=== PATIENT | male | born 1960 | race Caucasian/White ===

== ENCOUNTER 2025-04-22 14:28 | Emergency (ER) | payer BC, SELFPAY ==
--- OUTSIDE RECORDS SUMMARY | 2025-04-22 14:32 | XMS_ITS | Clinical Summary ---
Author Organization [facility] Address [address] [place] [address] Care Team Providers Care Guest Services Lead Name Role Phone Karely Bowden MD Primary Care Provider [phone] Allergies No known active allergies Medications MedicationSigDispense QuantityRefillsLast FilledStart DateEnd DateStatus diclofenac (VOLTAREN) 75 mg delayed-release tablet Indications:Chronic pain of both shouldersTake 1 Tablet (75 mg) by mouth once daily. 90 Tablet 4Active Additional Information Patient not taking.Reason: holding off for now, will resume if needed, Reported on 04/10/2024 fluticasone (50 mcg per actuation) nasal solution (FLONASE) Indications:Acute non-recurrent maxillary sinusitisInhale 2 Sprays in both nostrils once daily. 16 g 4Active omeprazole (PRILOSEC) 20 mg Delayed-Release capsule Indications:Gastritis without bleeding, unspecified chronicity, unspecified gastritis typeTAKE 1 CAPSULE (20 MG) BY MOUTH ONCE DAILY BEFORE A MEAL. 90 Capsule 5Active famotidine (PEPCID) 20 mg tablet Indications:Gastritis without bleeding, unspecified chronicity, unspecified gastritis typeTAKE 1 TABLET (20 MG) BY MOUTH AT BEDTIME 90 Tablet 5Active levothyroxine (SYNTHROID) 75 mcg tablet Indications:Subclinical hypothyroidismTAKE 1 TABLET (75 MCG) BY MOUTH ONCE DAILY. 90 Tablet 5Active levothyroxine (SYNTHROID) 75 mcg tablet Indications:Subclinical hypothyroidismTake 1 Tablet (75 mcg) by mouth once daily. 90 Tablet /4105/27/2024Discontinued Active Problems ProblemNoted DateDiagnosed DateSubclinical pxbxualbbkrdjz27/06/2022Right leg pain05/07/2021alculus of gallbladder without cholecystitis without obstruction 07/02/2020Gastritis without vtpnzjuj36/03/2021Family history of thyroid disease 07/02/2020sophageal reflux Resolved Problems ProblemNoted DateDiagnosed DateResolved DatePain in joint, ankle and foot Encounters DateTypeDepartmentCare OshwQesovawgcjd27/22/2025Nurse Triage [address] [address] Karely Bowden MD Leg Pain/problem (Recent international travel)04/22/2025Telephone [facility] [address] [place] [address] Karely Bowden MD Leg Pain/baypqvp0303/26/2025Refill [facility] [address] [place] [address] Karely Bowden MD Refill Request (Levothyroxine)03/07/2025Refill [facility] [address] [place] [address] Karely Bowden MD Refill Request (Famotidine)02/06/2025Refill [facility] [address] [place] [address] Karely Bowden MD Refill Request (Omeprazole)from Last 3 Months Immunizations ImmunizationAdministration DatesNext DueAMB Influenza, IIV4 PF (=>6 mos Flulaval,Fluzone Fluarix)(Flu Clinic Only)03/05/2017Influenza, IIV3 (Age >=3 years)01/26/2011Influenza, XXX76005/08/2013,02/05/2013Influenza, IIV4 (=>6mos) MDV 01/14/2020,02/26/2019,02/08/2018,02/09/2016Influenza, Injectable, Mdck, Quadrivalent, W/hdfeqptthgau75/31/2022,01/22/2021Td (Age >=7 Years)02/11/2004 Tdap05/07/2021,07/03/2012Zoster (Shingrix-RZV, recombinant)11/03/2021,05/07/2021 Family History Medical HistoryRelationNameCommentsGood HealthFatherOtherFatherhypothyroidOther MotherparkinsonsRelationNameStatusCommentsFatherAliveMotherDeceased Social History Tobacco UseTypesPacks/DayYears UsedDateSmoking Tobacco: NeverPassive Smoke Exposure: NeverSmokeless Tobacco: Never Tobacco Cessation:Counseling Given: Yes Alcohol UseStandard Drinks/WeekCommentsYes7 (1 standard drink = 0.6 oz pure alcohol)one two beers a dayPHQ-2AnswerDate RecordedPHQ-2 TOTAL GTCJT248 Social ConnectionsAnswerDate RecordedDo you often feel lonely or isolated from those around you?Financial Resource StrainAnswerDate Recorded Difficulty of Paying Living Adfzdkfb292/03/2024Difficulty of Paying Living ExpensesNot on file02/02/2024Food InsecurityAnswerDate RecordedDo you worry your food will run out before you are able to buy more?Transportation NeedsAnswerDate RecordedDoes lack of transportation keep you from medical appointments?oes lack of transportation keep you from work, meetings or getting things that you need?Housing StabilityAnswerDate Recorded What is your housing situation today?UtilitiesAnswerDate RecordedDo you have trouble paying for utilities (for example, heat, electricity, water, phone)?Sex and Gender InformationValueDate RecordedSex Assigned at QvmlcAkgu36/03/2022 7:36 AM CSTLegal FkjWsqa4505/15/2012 5:46 AM CSTGender PxfjfaaxDnkr42/03/2022 7:36 AM CSTSexual OrientationNot on fileOccupation IndustryJob Start DateJob End Dategeology professorNot on fileNot on fileNot on file Last Filed Vital Signs Vital SignReadingTime TakenCommentsBlood Amodapou959/8210 10:54 AM CDT Tqgak307302/07/2024 10:54 AM NJKEdxlpoclveu43.6 ??C (97.8 ??F)10/03/2019 8:17 AM CDTRespiratory Ztso559607/08/2017 5:48 PM CSTOxygen Szsbmqacrg62%02/07/2024 10:54 AM CDTInhaled Oxygen Concentration--Ekbbdw33.5 kg (190 lb 12.8 oz)02/07/2024 10:54 AM KMLBsitck092.3 cm (5' 11)12/10/2022 8:23 AM CDTBody Mass Index26.61 12/10/2022 8:23 AM CDT Plan of Treatment DateTypeDepartmentCare Team (Latest Contact Info)Jltprghrbkt61/08/2026 8:45 AM CSTOffice Visit [facility] [address] [place] [address] Karely Bowden MD [address] [place] [address] Health MaintenanceDue DateLast DoneCommentsPneumococcal series for age 50+ (1 of 1 - PCV)2012MI (ht and wt on same day) for age 18+, 10/03/2019, 09/20/2018, Additional history existsDepression screening for age 12+, 05/07/2021, 09/14/2019, Additional history exists Colonoscopy through age 7508///COVID-19 vaccine series (2024- season), 02/17/2023, 01/21/2022, Additional history existsInfluenza Vaccine (#1), 01/22/2021, 01/14/2020, Additional history existsLipids for age 45-75, 12/10/2022, 05/07/2021, Additional history existsTetanus qqebqcb65, 07/03/2012, 07/03/2012, Additional history existsRSV vaccine for adults or (1 - 1-dose 75+ series)2037Hepatitis C screening for age 18-79 Dkjggrxls67/06/2022Zoster (shingles) series for age 50+Iyrjjtowo62/05/2022, 05/07/2021HIV for age 15-58Dicsjscie42/11/2023Hepatitis B series for 19+Aged Out No longer eligible based on patient's age to complete this topic Procedures Procedure NamePriorityDate/TimeAssociated DiagnosisCommentsLIPID PANEL W REFLEX MEASURED OBVGaixlwd08/08/2024 11:14 AM CDT Lipid screening LC HIV-1/O/2, 4TH PYIBMOIUUGNwpmiex39/11/2023 9:19 AM CDT Screening for HIV (human immunodeficiency virus) ANTI XBBSoyujsp09/06/2022 9:03 AM 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 Lita et al. J. of Clin. Lipidol. 2015;9:129-169. LDL-DQFLOHEFZMA694(H)mg/dL (calc)Quest farmfloeComment: Reference range: <100 Desirable range <100 mg/dL for primary prevention; <70 mg/dL for patients with CHD or diabetic patients with > or = 2 CHD risk factors. LDL-C is now calculated using the Francisco J-Montelongo calculation, which is a validated novel method providing better accuracy than the Friedewald equation in the estimation of LDL-C. Francisco J SS et al. BALJINDER. 2013;310(19): 6945-7427 (http://education.Halldis/faq/RAE180) CHOL/HDLC RATIO4.8<5.0 (calc)Cro YachtingSt. Cloud Va Health Care SystemeNOTamy HDL QMWPFPYJIMN499 (H)<130 mg/dL (calc)Overture ServicesSandstone Critical Access HospitaleComment: For patients with diabetes plus 1 major ASCVD risk factor, treating to a non-HDL-C goal of <100 mg/dL (LDL-C of <70 mg/dL) is considered a therapeutic option. Specimen (Source)Anatomical Location / LateralityCollection Method / Volume Collection TimeReceived TimeBloodBLOOD SPECIMEN / Pobdoqu5602/07/2024 11:14 AM CDT 02/07/2024 11:15 AM CDT Narrative Authorizing ProviderResult TypeResult StatusMelissa Dionicio Bowden MDCHEMISTRYFinal ResultPerforming OrganizationAddressCity/State/ZIP CodePhone Number [facility] [address] [place] [address], [facility] YachtingRidgeview [facility] [address] [place] [address] * LC HIV-1/O/2, 4TH GENERATION (12/10/2022 9:19 AM CDT)ComponentValueRef Range Test MethodAnalysis TimePerformed AtPathologist SignatureHIV Scr 4th GenNon ReactiveNon Yidmdnej06/15/2023 10:10 AM CDTLABCORP [facility] (CET)Comment: HIV Negative HIV-1/HIV-2 antibodies and HIV-1 p24 antigen were NOT detected. There is no laboratory evidence of HIV infection. Specimen (Source)Anatomical Location / LateralityCollection Method / Volume Collection TimeReceived TimeBloodBLOOD SPECIMEN / UnknownVenipuncture / Unknown 12/10/2022 9:19 AM CDT12/10/2022 9:19 AM CDT [facility] (CET) - 12/14/2022 10:10 AM CDT Performed at: 01 - [place] [id number] [place], [place] [id number] Building Construction Teacher: Zia Lucas MD, Phone: ??[phone] Authorizing ProviderResult TypeResult StatusKarely Bowden MDLABORATORYFinal ResultPerforming OrganizationAddressCity/State/ZIP CodePhone Number [facility] (CET) [address] [place] [address], * ANTI HCV (05/07/2021 9:03 AM GASOLINE ENGINE INSPECTOR)ComponentValueRef RangeTest MethodAnalysis TimePerformed AtPathologist SignatureHEPATITIS C ANTIBODYNon-Reactive Non-Uileyxwn58/06/2022 3:23 PM CSTALLDAYTON GENERAL [facility] Comment:Antibodies to HCV not detected; does not exclude the possibility of exposure to HCV.Specimen (Source)Anatomical Location / LateralityCollection Method / VolumeCollection TimeReceived TimeBloodBLOOD SPECIMEN / Unknown Venipuncture / Kjpwbqh1305/07/2021 9:03 AM CST05/07/2021 9:06 AM GASOLINE ENGINE INSPECTOR Narrative Authorizing ProviderResult TypeResult StatusKarely Bowden MDSEND OUTSFinal ResultPerforming OrganizationAddressCity/State/ZIP CodePhone Number [facility] [address] [place] [address], from Last 3 Months or Most Recently Relevant to Health Maintenance Insurance * Guarantor: Dennys Dorman TypeRelation to PatientDate of PhoneBilling AddressPersonal/MdwenxQnya04/19/1961 [address] [place] [place] [address] [place] [place] [address] Care Teams Team MemberRelationshipSpecialtyStart DateEnd Date [place]are[place] [address] PCP - GeneralFamily Practice07/02/20
[2025-04-22 14:47] VITALS: BP 179/85; PULSE 82; RESP 16; TEMP 36.4; O2SAT 98; BMI 26.8
--- NOTE | 2025-04-22 14:50 | CRLHL7_ITS ---
For Patients: As a result of the Century Cures Act, medical imaging exams and procedure reports are released immediately into your electronic medical record. You may view this report before your referring provider. If you have questions, please contact your health care provider. INDICATION: Leg pain and swelling. TECHNIQUE: Ultrasound venous duplex lower left extremity. Compression venous exam was performed using de jesus-scale, color Doppler, and spectral Doppler analysis. COMPARISON: None. FINDINGS: Deep veins: There is thrombus present in 1 of the paired left posterior tibial veins. Remainder of the deep veins are patent. Superficial veins: Greater saphenous vein is fully compressible. No popliteal cyst. IMPRESSION: A deep venous thrombus is present in a left posterior tibial vein below the knee. Remainder of the exam is unremarkable. Dictated by Adrian Rivera MD @ 04/22/2025 4:03:59 PM (Electronically Signed)
--- NOTE | 2025-04-22 16:15 | ED_ITS ---
HPI - General Adult General Date Seen: 04/22/25 Chief complaint: Extremity Pain/Injury, Lower Stated complaint: LT calf pain 2 weeks Time Seen by Provider: 04/22/25 16:15 Source: patient and RN notes reviewed Mode of arrival: ambulatory Limitations: no limitations History of Present Illness HPI narrative: This 64-year-old male is coming in to the ER with concern of a blood clot. He had a 14 hour plane flight about 2 weeks ago. He came back from [facility]. They had a stop in [place] and than from [place] back to [place]. He has not really noticed any swelling or redness but he has a point in his left medial calf where it is aching. It did wake him up last night. He has continued to have pain for 2 weeks. He has no fevers or chills, no shortness of breath, no chest pain. The pain just has not relented. He has a colleague that had a history of a DVT in ended up with a near fatal pulmonary embolus. 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 He has never had a blood clot before. Related Data Home Medications ?Medication ?Instructions ?Recorded ?Confirmed famotidine 20 mg tablet 20 mg PO QPM 04/22/25 levothyroxine 75 mcg tablet 75 mcg PO DAILY 04/22/25 1 06/23/24 omeprazole 20 mg capsule,delayed 20 mg PO DAILY 04/22/25 release Allergies Allergy/AdvReac Type Severity Reaction Status Date / Time No Known Drug Allergies Allergy Verified 04/22/25 14:46 Review of Systems Narrative: As per HPI. Exam Const: Vital Signs, click to edit/add: Vital Signs - 24 hr 04/22/25 14:47 Temperature 97.5 F L Pulse Rate [Pulse Oximeter] 82 Respiratory Rate 16 Blood Pressure [Ri ght Upper Arm] 179/85 H Pulse Oximetry 98 Oxygen Delivery Me thod Room Air This 64-year-old male is ambulatory come gait normal. He is seen in triage due to the volume in the acuity the ER. He is alert, interactive, no apparent distress. Lungs are clear, good air entry, no wheeze or crackles, no tachypnea, no accessory muscle use. CV regular rate and rhythm, no murmur, normal S1-S2. He has no edema of this left lower extremity. He has discomfort along the left medial calf, along the gastrocnemius muscle but there really is no palpable cord, no swelling. Neurovascular is intact. Documenting provider has reviewed patient's vital signs: yes Course Course ED Course: Did review his ultrasound result. He has an isolated DVT in 1 of the left tibial veins and is below the knee. We reviewed open evidence with the 2 potential ways to do this. Treatment for DVT for 3 months verses period of observation with serial ultrasounds at 1 and 2 weeks with initiation of anticoagulant if there is any propagation. Patient and I discussed risks benefits, risks of bleeding with blood thinners. We did review NOACs. Ultimately we agreed upon treatment with Eliquis. Will give him his 1st dose of 10 mg Eliquis here. Vital Signs Vital signs: Initial Vital Signs Temperature 97.5 F L 04/22/25 14:47 Temperature Source Temporal Artery Scan 04/22/25 14:47 Pulse Rate 82 04/22/25 14:47 Respiratory Rate 16 04/22/25 14:47 Blood Pressure 179/85 H 04/22/25 14:47 Blood Pressure Mean 116 H 04/22/25 14:47 Pulse Oximetry 98 04/22/25 14:47 Oxygen Delivery Method Room Air 04/22/25 14:47 Vital Signs Temperature 97.5 F L 04/22/25 14:47 Pulse Rate 82 04/22/25 14:47 Respiratory Rate 16 04/22/25 14:47 Blood Pressure 179/85 H 04/22/25 14:47 Pulse Oximetry 98 04/22/25 14:47 Oxygen Delivery Method Room Air 04/22/25 14:47 Temperature 97.5 F L 04/22/25 14:47 Pulse Rate 82 04/22/25 14:47 Respiratory Rate 16 04/22/25 14:47 Blood Pressure 179/85 H 04/22/25 14:47 Pulse Oximetry 98 04/22/25 14:47 Oxygen Delivery Method Room Air 04/22/25 14:47 Medical Decision Making Medical Records Medical records reviewed: Yes I reviewed the patient's medical records Medical records narrative: Review of prior chemistries from his clinic show no evidence any renal dysfunction historically. Imaging Data Venous US: Attestation: I have reviewed the pertinent imaging results. Radiologist's impression: Patient: YVONNE PERLA Facility:?[facility] Patient ID:?[id number] Site Patient ID:?[id number]. Site :?1960 Study:?US-Extremity Left LEV-04/22/2025 3:50:14 PM Ordering Physician:?PROVIDER IRINA Final Report: INDICATION: Leg pain and swelling. TECHNIQUE: Ultrasound venous duplex lower left extremity. Compression venous exam was performed using de jesus-scale, color Doppler, and spectral Doppler analysis. COMPARISON: None. FINDINGS: Deep veins: There is thrombus present in 1 of the paired left posterior tibial veins. Remainder of the deep veins are patent. Superficial veins: Greater saphenous vein is fully compressible. No popliteal cyst. IMPRESSION: A deep venous thrombus is present in a left posterior tibial vein below the knee. Remainder of the exam is unremarkable. Dictated by Adrian Rivera MD @ 04/22/2025 4:03:59 PM (Electronic Signature) Discharge Plan Discharge Clinical Impression: Acute DVT of left tibial vein Patient Disposition: Home, Self-Care Condition: Stable Instructions: Deep Vein Thrombosis (ED) Additional Instructions: Take Eliquis as prescribed. You will take 10mg twice daily for a total of 13 more doses (had your first dose in the ED). After that, you will take 5 mg twice a day to complete 3 months of treatment. Please schedule follow-up with your primary care provider within the next few weeks, she can get further prescriptions for the Eliquis and outline further management. If you are doing prolonged travel after you are off the Eliquis, talk to your primary care pro vider about different options to help prevent blood clots. If you develop any shortness of breath, chest pain, concerning chest symptoms, do recommend re- evaluation. It is important to take the Eliquis as scheduled, missing doses does put you at risk for diminished anticoagulation. If you do develop swelling of this leg, a compression stocking can help minimize that and decrease risk of post phlebitic syndrome where there is chronic swelling. Activity Level: Activity as Tolerated Prescriptions: No Action levothyroxine 75 mcg tablet 75 mcg PO DAILY famotidine 20 mg tablet 20 mg PO QPM omeprazole 20 mg capsule,delayed release(DR/EC) 20 mg PO DAILY Follow Up/Referrals: Karely Bowden MD [Primary Care Provider, Family Practice] Stand Alone Forms: PrintToPeer Info Instructions
[2025-04-22] MEDS: APIXABAN 5 MG TABLET 10 MG PO (17:10)
== END 2025-04-22 17:11 | disposition home or self-care (01) ==
LOC: ED 17:02
PROVIDERS: Emergency Provider Family Medicine; PCP Family Medicine
DX: I82.542 Chronic embolism and thrombosis of left tibial vein (principal)
CPT/HCPCS: 93971; 99283; 99284; A9270